=== PATIENT | female | born 1965 | race Caucasian/White ===

== ENCOUNTER → 2020-11-05 09:03 | Outpatient (CLI) | payer BC, SELFPAY ==
--- NOTE | ~2020-11-05 | US_ITS ---
EXAMINATION: US thyroid DATE: 11/05/2020 09:23 INDICATION: Nontoxic goiter. TECHNIQUE: Multiple ultrasound images of the thyroid were obtained. COMPARISON: None. FINDINGS: The right thyroid lobe is absent. The left thyroid lobe measures 4.0 x 1.6 x 1.4 cm. There is normal echotexture and echogenicity throughout the thyroid gland. No discrete nodules identified. Normal va scular flow is present. IMPRESSION: 1. Normal left thyroid lobe. Absent right thyroid lobe. Reviewed, dictated and finalized at location A. [employer]
== END ==
PROVIDERS: Visit Provider Internal Medicine Endocrinology, Diabetes & Metabolism
DX: E04.9 Nontoxic goiter, unspecified (principal)
CPT/HCPCS: 76536